=== PATIENT | male | born 1960 | race African-American/Black ===

== ENCOUNTER 2016-08-19 08:22 | Emergency (ER) | payer SELFPAY ==
[~2016-08-19] VITALS: Ht 182.9 cm; Wt 75.0 kg
[~2016-08-19 08:22] MED LIST: IBUP-232 PO
[2016-08-19 08:25] VITALS: BP 132/77; PULSE 84; RESP 18; TEMP 98.4; O2SAT 99
[2016-08-19 08:38] VITALS: BP 149/73; PULSE 82; RESP 20; O2SAT 96
[2016-08-19] MEDS ORDERED: DIATRIZOATE MEGLUM/DIATRIZOATE SOD 9 ML CUP ONE (08:45)
[2016-08-19] MEDS ORDERED: MORPHINE SULFATE 4 MG/ML INJ IV PUSH ONE (08:45)
[2016-08-19] MEDS ORDERED: SODIUM CHLORIDE 0.9% FLUSH 10 ML FLUSH IV FLUSH PRN (08:45)
[2016-08-19 09:15] LABS: AUTOMATED NEUTROPHIL # 5.2 TH/MM3 (1.8-7.7); BASOPHIL % 0.3 % (0.0-2.0); EOSINOPHIL # 0.2 TH/MM3 (0-0.4); EOSINOPHIL % 3.2 % (0.0-4.0); HEMATOCRIT 41.4 % (39.0-51.0); HEMO FLAGS DIFF FINAL; LYMPH % 13.8 % (9.0-44.0); MEAN CORPUSCULAR HEMOGLOBIN 33.1 PG (27.0-34.0); MEAN CORPUSCULAR HGB CONC 35.2 % (32.0-36.0); MONO % 8.6 % (0.0-8.0); NEUT % 74.1 % (16.0-70.0); PLATELET COUNT 217 TH/MM3 (150-450); RED CELL DISTRIBUTION WIDTH 13.6 % (11.6-17.2); WHITE BLOOD COUNT 7.1 TH/MM3 (4.0-11.0)
--- NOTE | 2016-08-19 09:48 | PD ---
HPI Chief Complaint: Abdominal Pain Time Seen by Provider: 08:40 Travel History International Travel<30 days: No Contact w/Intl Traveler<30days: No Traveled to known affect area: No History of Present Illness HPI Patient is a 56-year-old male here with complaint of abdominal pain. For the last 3-4 days patient has had crampy right sided abdominal pain. This comes and goes and he does not notice any provocative or relieving factors. No nausea, vomiting, fevers, chills, diarrhea. Patient states that he had similar pain several years ago and was seen in our emergency department diagnosis of colitis and spent several days in the hospital. He's never previously had any abdominal surgeries. PFSH Past Medical History Arthritis: No Asthma: No Anxiety: No Depression: No Cancer: No Cardiovascular Problems: Yes Chemotherapy: No Chest Pain: No COPD: No Cerebrovascular Accident: Yes Diabetes: No Diminished Hearing: Yes (LEFT EAR) Glaucoma: No Hepatitis: No Hypertension: No Kidney Stones: No Migraines: No Renal Failure: No Seizures: No Sleep Apnea: No Thyroid Disease: No PNEUMOCCOCAL Vaccine (Year): 1 Past Surgical History AICD: No Appendectomy: No Cholecystectomy: No Joint Replacement: No Social History Alcohol Use: Yes (6 pack beer daily) Tobacco Use: Yes (1 PK PER DAY) Substance Use: No Allergies-Medications (Allergen,Severity, Reaction): Coded Allergies: Shrimp (Verified Allergy, Severe, ANAPHALAXIS,HIVES, 06/20/15) Reported Meds & Prescriptions Reported Meds & Active Scripts Active No Active Prescriptions or Reported Medications Review of Systems Except as stated in HPI: all other systems reviewed are Neg Physical Exam Narrative GENERAL: Well-appearing male in no acute distress SKIN: Focused skin assessment warm/dry. HEAD: Normocephalic. EYES: No scleral icterus. No injection or drainage. ENT: Mucous membranes pink and moist. NECK: Supple CARDIOVASCULAR: Regular rate and rhythm. No murmur appreciated. RESPIRATORY: No accessory muscle use. Clear to auscultation. Breath sounds equal bilaterally. GASTROINTESTINAL: Abdomen soft, mild right sided abdominal tenderness to palpation without rebound or guarding MUSCULOSKELETAL: Normal gait NEUROLOGICAL: Awake and alert. Normal speech. PSYCHIATRIC: Appropriate mood and affect; insight and judgment normal. Data Data Last Documented VS Vital Signs Date Time Temp Pulse Resp B/P Pulse Ox O2 Delivery O2 Flow Rate FiO2 4/16/17 08:38 82 20 149/73 96 Room Air 08/19/16 08:25 98.4 Orders Complete Blood Count With Diff (08/19/16 08:43) Comprehensive Metabolic Panel (08/19/16 08:43) Lipase (08/19/16 08:43) Ct Abd/Pel W Iv Contrast(Rout) (08/19/16 08:43) Iv Access Insert/Monitor (08/19/16 08:43) Ecg Monitoring (08/19/16 08:43) Oximetry (08/19/16 08:43) Morphine Inj (Morphine Inj) (08/19/16 08:45) Sodium Chloride 0.9% Flush (Ns Flush) (08/19/16 08:45) Diatrizoate Liq ( Gastroview Liq) (08/19/16 08:45) Oral Contrast - Adult (08/19/16 08:59) Iohexol 350 Inj (Omnipaque 350 Inj) (08/19/16 11:07) Labs Laboratory Tests Test 08/19/16 08:50 White Blood Count 7.1 TH/MM3 Red Blood Count 4.40 MIL/MM3 Hemoglobin 14.6 GM/DL Hematocrit 41.4 % Mean Corpuscular Volume 94.0 FL Mean Corpuscular Hemoglobin 33.1 PG Mean Corpuscular Hemoglobin 35.2 % Concent Red Cell Distribution Width 13.6 % Platelet Count 217 TH/MM3 Mean Platelet Volume 9.5 FL Neutrophils (%) (Auto) 74.1 % Lymphocytes (%) (Auto) 13.8 % Monocytes (%) (Auto) 8.6 % Eosinophils (%) (Auto) 3.2 % Basophils (%) (Auto) 0.3 % Neutrophils # (Auto) 5.2 TH/MM3 Lymphocytes # (Auto) 1.0 TH/MM3 Monocytes # (Auto) 0.6 TH/MM3 Eosinophils # (Auto) 0.2 TH/MM3 Basophils # (Auto) 0.0 TH/MM3 CBC Comment DIFF FINAL Differential Comment Sodium Level 135 MEQ/L Potassium Level 5.0 MEQ/L Chloride Level 100 MEQ/L Carbon Dioxide Level 29.6 MEQ/L Anion Gap 5 MEQ/L Blood Urea Nitrogen 11 MG/DL Creatinine 1.02 MG/DL Estimat Glomerular Filtration 91 ML/MIN Rate Random Glucose 87 MG/DL Calcium Level 9.7 MG/DL Total Bilirubin 0.8 MG/DL Aspartate Amino Transf 52 U/L (AST/SGOT) Alanine Aminotransferase 41 U/L (ALT/SGPT) Alkaline Phosphatase 64 U/L Total Protein 8.6 GM/DL Albumin 4.0 GM/DL Lipase 153 U/L [facility] Medical Decision Making Medical Screen Exam Complete: Yes Emergency Medical Condition: Yes Medical Record Reviewed: Yes Differential Diagnosis 56-year-old male here with complaint of right sided crampy abdominal pain. Differential includes hepatobiliary pathology, appendicitis, colitis, right sided diverticulitis, and less likely UTI, ureterolithiasis or pancreatitis. Narrative Course Patient placed on monitor, IV established and blood obtained. Given 4 mg morphine. CBC, CMP, lipase unremarkable. CT abdomen and pelvis showed no acute abnormalities except for chronic changes in the region of the left acetabular labrum. Patient was reassured and discharged home given benign abdominal exam. Diagnosis Primary Impression: Abdominal pain Qualified Code: R10.10 - Pain of upper abdomen Referrals: Primary Care Physician as needed Additional Instructions: Tylenol, ibuprofen as needed for pain. Follow-up with primary care provider symptoms persist. Laboratory workup and CT imaging of the abdomen and pelvis today were normal. Med/Other Pt SpecificInfo: No Change to Meds Scripts No Active Prescriptions or Reported Meds Disposition: 01 DISCHARGE HOME Condition: Stable Sarah Srivastava MD Aug 19, 2016 09:48
[2016-08-19 09:56] LABS: ALKALINE PHOSPHATASE 64 U/L (45-117); ALT (GPT) 41 U/L (12-78); ANION GAP 5 MEQ/L (5-15); AST (GOT) 52 U/L (15-37); BICARBONATE 29.6 MEQ/L (21.0-32.0); BLOOD UREA NITROGEN 11 MG/DL (7-18); CHLORIDE 100 MEQ/L (98-107); GLOMERULAR FILTRATION RATE 91 ML/MIN (>89); SODIUM (NA) 135 MEQ/L (136-145); TOTAL BILIRUBIN ADULT 0.8 MG/DL (0.2-1.0)
[2016-08-19] MEDS ORDERED: IOHEXOL 350 MG/ML 10 ML VIAL (for RAD DIAG) IV ONE (11:07)
--- NOTE | 2016-08-19 11:28 | RADRPT ---
EXAM DATE/TIME: 08/19/2016 10:52 [place] COMPARISON: No previous studies available for comparison. INDICATIONS : Abdomen pain. IV CONTRAST: 75 cc Omnipaque 350 (iohexol) IV ORAL CONTRAST: Prescribed oral contrast ingested. RADIATION DOSE: 9.96 CTDIvol (mGy) MEDICAL HISTORY : Cardiovascular disease. SURGICAL HISTORY : None. ENCOUNTER: Initial ACUITY: 1 day PAIN SCALE: 5/10 LOCATION: Bilateral abdomen. TECHNIQUE: Volumetric scanning of the abdomen and pelvis was performed. Using automated exposure control and ad justment of the mA and/or kV according to patient size, radiation dose was kept as low as reasonably achievable to obtain optimal diagnostic quality images. FINDINGS: CT Abdomen: The liver, spleen, pancreas, kidneys, adrenals are unremarkable. There is no evidence for any appreciable pathological adenopathy, free fluid, or bowel obstruction. CT pelvis: There is no evidence for mass, abscess formation, or any significant adenopathy within the pelvis. The prostate gland is inhomogeneous and measures 3.8 x 4.8 cm in AP and transverse diameters and nonspecific. The appendix appears intact without definite signs of appendicitis. There are hyper trophic changes involving the left acetabular labrum with a well-defined and corticated bony density at this site may be due to old trauma. CONCLUSION: Essentially unremarkable study except for chronic changes in the region of the left a cetabular labrum. Greta Quiñonez MD on August 19, 2016 at 11:22 Board Certified Radiologist. This report was verified electronically.
[2016-08-19 12:27] VITALS: BP 146/76
== END 2016-08-19 12:29 | disposition home or self-care (01) ==
LOC: NEPE 08:22
DX: R10.11 Right upper quadrant pain (principal); H91.92 Unspecified hearing loss, left ear; F17.210 Nicotine dependence, cigarettes, uncomplicated
CPT/HCPCS: 74177; 80053; 83690; 85025; 96374; 99284; J2270; Q9963; Q9967